=== PATIENT | male | born 1975 | race Caucasian/White ===

== ENCOUNTER → 2017-06-30 | Outpatient (CLI) | payer BC ==
[~2017-06-30] MED LIST: ADDERALL10 MG PO; KEFLEX750 MG PO; LAMOTRIGINE200 MG PO; NAPROSYN 500MG500 MG PO; QUETIAPINE FUM200 M1 PO
--- NOTE | 2017-06-30 12:06 | RADIOLOGY REPORT PS360 ---
HAND-LT-3 VIEWS HISTORY: LEFT HAND PAIN ORDERING PHYSICIAN: Eryn Medina APRN PATIENT AGE: 41 years COMPARISON: None FINDINGS: No fracture or dislocation. No lytic or blastic change. There is normal mineralization. The joint spaces are well-preserved. No significant degenerative/arthritic changes. No erosive changes evident. There is a small amount subcutaneous gas along the dorsum of the metacarpal region. A small metallic foreign bodies present along the anterior and distal aspect of the fourth finger. IMPRESSION: 1. No acute fracture. 2. Small amount soft tissue gas at the dorsal metacarpal region. 3. Small foreign body of the fourth finger
== END ==
LOC: RAD 11:46
DX: M79.642 Pain in left hand (principal)